=== PATIENT | female | born 1955 | race Caucasian/White ===

== ENCOUNTER 2023-01-19 10:47 | Observation (INO) ==
[2023-01-19] MEDS ORDERED: TUSSIONEX PENNKINETIC SUSP PO PRN (11:07)
[2023-01-19 12:13] LABS: BASOPHILS # (AUTO) 0.1 X10^3/uL (0.0-0.1); BASOPHILS % (AUTO) 1.3 % (0.2-1.0); EOSINOPHILS # (AUTO) 0.7 x10^3/uL (0.0-0.2); EOSINOPHILS % (AUTO) 10.4 % (0.9-2.9); HEMATOCRIT 40.4 % (36.0-47.0); LYMPHOCYTES # (AUTO) 2.7 X10^3/uL (1.3-2.9); LYMPHOCYTES % (AUTO) 39.6 % (21.0-51.0); MEAN CORPUSCULAR HEMOGLOBIN 26.2 pg (27.0-34.0); MEAN CORPUSCULAR HGB CONC 32.2 g/dL (33.0-35.0); MEAN CORPUSCULAR VOLUME 81.4 fL (80.0-100.0); MONOCYTES # (AUTO) 0.4 x10^3/uL (0.3-0.8); MONOCYTES % (AUTO) 6.1 % (0.0-13.0); NEUTROPHILS # (AUTO) 2.9 x10^3/uL (2.2-4.8); NEUTROPHILS % (AUTO) 42.6 % (42.0-75.0); PLATELET COUNT 327 X10^3/uL (150.0-450.0); RED BLOOD COUNT 4.97 X10^6/uL (3.5-5.4); RED CELL DISTRIBUTION WIDTH 16.1 % (11.6-16.5); WHITE BLOOD COUNT 6.9 X10^3/uL (3.6-10.0)
[2023-01-19] MEDS ORDERED: NS 1/2 1,000 ML IV 1,000 ML IV ONE (12:14)
[2023-01-19] MEDS: VSL#3 PO SCH (12:21)
[2023-01-19] MEDS: FORTAZ or TAZICEF VIAL INJ 1 G in NS 100 ML IV 100 ML IV SCH ×3 (12:21→21:04)
[2023-01-19] MEDS: NS 1/2 1,000 ML IV 1,000 ML IV SCH (12:22)
[2023-01-19] MEDS: ROBITUSSIN DM PO SCH ×3 (12:22→21:04)
[2023-01-19 12:38] LABS: ALANINE AMINOTRANSFERASE 21 Units/L (12-78); ALBUMIN 3.6 g/dL (3.4-5.0); ALKALINE PHOSPHATASE 69 Units/L (46-116); ASPARTATE AMINO TRANSFERASE 15 Units/L (15-37); BLOOD UREA NITROGEN 15 mg/dL (7-18); CALCIUM 8.4 mg/dL (8.5-10.1); CARBON DIOXIDE 35.5 mmol/L (21-32); CHLORIDE 99 mmol/L (98-107); CREATININE 0.96 mg/dL (0.55-1.02); GLUCOSE 98 mg/dL (65-99); POTASSIUM 3.5 mmol/L (3.5-5.1); SODIUM 137 mmol/L (136-145); TOTAL PROTEIN 7.8 g/dL (6.4-8.2); eGFR NON BLACK RACES > 60 (>60)
[2023-01-19] MEDS: DUONEB 0.5 MG/3 MG (3 mL) NEB SCH ×4 (12:42→20:44)
[2023-01-19] MEDS: PULMICORT NEB TX 0.5 MG NEB SCH ×2 (12:42→20:44)
[2023-01-19] MEDS: LEVAQUIN PREMIX IV 500 MG 500 MG/100 ML BAG IV SCH (13:30)
--- NOTE | 2023-01-19 15:15 | RAD ---
EXAM:CHEST, 1 VIEWHISTORY:PNEUMONIA;COMPARISON:No relevant prior studies were available at the time of interpretation.TECHNIQUE:CHEST, 1 VIEWFINDINGS:Lines and tubes: NoneMediastinum:The cardiomediastinal silhouette is within normal limits for size and contour.Pulmonary vasculature:No pulmonary vascular congestionLung may: No suspicious airspace opacities.Pleura:No effusion or pneumothorax.Bones and soft tissues:No acute osseous or soft tissue abnormality.IMPRESSION:1. No acute cardiopulmonary abnormalityTHIS IS AN ELECTRONICALLY VERIFIED FINAL [id number]/19/2023 3:12 PM - Electronically signed by Nikolai Hurley MD
--- NOTE | 2023-01-19 19:10 | DR.H&P ---
H&P - History & Physical for Day of: H&P Date: 01/19/23 - Chief Complaint Chief Complaint: COUGH, SHORTNESS OF BREATH, DIZZINESS - History of Present Illness History of Present Illness: IS A 67 YEAR OLD PATIENT OF AB TOUSSAINT. SHE HAS A PAST MEDICAL HISTORY OF HYPERLIPIDEMIA, HYPERTENSION, CHRONIC BACK PAIN, CATARACTS, AND DEPRESSION. SHE PRESENTED TO THE HOSPITAL A DIRECT ADMISSION, OBSERVATION STATUS, FOR FURTHER EVALUATION AND TREATMENT OF BRONCHOPNEUMONIA, FAILED OUTPATIENT TREATMENT. PATIENT REPORTS HAVING COUGH, SHORTNESS OF BREATH, DIZZINESS, AND WEAKNESS FOR THE PAST TWO WEEKS. SHE REPORTS THAT HER SYMPTOMS HAVE PROGRESSIVELY GOTTEN WORSE. SHE BEGAN TAKING CEPHALEXIN 500MG BID Q6H ON 01/09/23. WHILE IN THE OFFICE, HER OXYGEN SATURATIONS WERE NOTED TO DROP TO 87% ON ROOM AIR WHILE AMBULATING. SHE DENIES IMPROVEMENT IN SYMPTOMS SINCE TAKING CEPHALEXIN. ON ADMISSION TO THE HOSPITAL, HER VITALS WERE: 97.7-89-20-92%-183/93. LABS WERE OBTAINED. WBC 6.9, RBC 4.97, HGB 13.0,M HCT 40.4, PLT COUNT 327, SODIUM 137, POTASSIUM 3.5, CHLORIDE 99, CARBON DIOXIDE 35.5, BUN 15, CREATININE 0.96, GLUCOSE 98, CALCIUM 8.4, TOTAL BILI 0.30, AST 15, ALT 21, ALK PHOS 69, TOTAL PROTEIN 7.8, ALBUMIN 3.6. BLOOD CULTURES WERE SET UP. COVID, INFLUENZA, AND RSV WERE NEGATIVE. A RESPIRATORY VIRAL PANEL WAS SET UP. ON ADMISSION, SHE WAS STARTED ON NORMAL SALINE AT 75 ML/HR, FORTAZ 1G IV Q8H, LEVAQUIN 500MG IV DAILY, DUONEBS QID, PULMICORT NEBS BID, TUSSIONEX 5ML Q12H PRN, ROBITUSSIN DM 10ML QID, PROBIOTICS DAILY. HER HOME MEDICATIONS OF QUETIAPINE, LISINOPRIL-HCTZ, AND AMLODIPINE WERE RESUMED. OTHERWISE, WE WILL FO LLOW UP WITH AM LABS AND CHEST XRAY AND CONTINUE TO MONITOR. TIME SPENT ON CLINICAL ASSESSMENT, REVIEWING LABS AND IMAGING, DECISION MAKING, AND DOCUMENTATION GREATER THAN 75 MINUTES. - Past Medical History Past Medical History: Depression, Dyslipidemia, Hypertension - Past Surgical History Additional Surgical History: CATARACTS REMOVED - Family History Family Medical History: [place] - Social History Does patient currently use any type of tobacco product: No Have you used tobacco products in the last 12 months: No Type of Tobacco Use: None Does any household member use tobacco: No Alcohol Use: None Drug Use: None - Review of Systems Constitutional: Weakness Eyes: No Symptoms Reported ENT: No Symptoms Reported Respiratory: Cough, Shortness of Breath, SOB with Excertion, Wheezing Cardiovascular: No Symptoms Reported Gastrointestinal: No Symptoms Reported Genitourinary: No Symptoms Reported Musculoskeletal: No Symptoms Reported Skin: No Symptoms Reported Neurological: Weakness - Physical Exam Vital Signs: Vital Signs Temperature 97.6 F Temperature 97.7 F Pulse Rate [Right Brachial] 96 Pulse Rate [Right Brachial] 89 Pulse Rate 65 Respiratory Rate 20 Respiratory Rate 20 Blood Pressure [Right Arm] 142/80 Blood Pressure [Right Arm] 183/93 Blood Pressure 150/69 O2 Sat by Pulse Oximetry 96 O2 Sat by Pulse Oximetry 95 O2 Sat by Pulse Oximetry 92 Oriented: Normal Eyes: Normal Ear: Normal Nose: Normal Throat: Normal Respiratory: Wheezes Throughout Cardiovascular: Normal : Normal Auscultation: Bowel Sounds: Normal Palpation: Normal Tenderness: Normal Skin: Normal Musculoskeletal: Normal Psychiatric: Normal Mood Description: Calm Affect: Normal Speech Pattern: Clear - Assessment/Plan (1) Bronchopneumonia Status: Acute Plan: ADMIT, NORMAL SALINE AT 75 ML/HR, FORTAZ 1G IV Q8H, LEVAQUIN 500MG IV DAILY, DUONEBS QID, PULMICORT NEBS BID, TUSSIONEX 5ML Q12H PRN, ROBITUSSIN DM 10ML QID, PROBIOTICS DAILY. RESUME HOME MEDS (2) Hypoxia Status: Acute (3) Hypertension Status: Chronic (4) Hyperlipemia Status: Chronic - Allergies Allergies/Adverse Reactions: Allergies Allergy/AdvReac Type Severity Reaction Status Date / Time No Known Drug Allergies Allergy Verified 07/09/20 13:21 - Medications Home Medications: Home Medications Medication Instructions Recorded Confirmed amlodipine 5 mg tablet 5 mg PO QDAY 01/19/23 01/19/23 cephalexin 500 mg capsule 500 mg PO Q6HR 01/19/23 01/19/23 lisinopril 20 1 tab PO QDAY 01/19/23 01/19/23 mg-hydrochlorothiazide 25 mg tablet quetiapine 50 mg tablet 50 mg PO BID 01/19/23 01/19/23
[2023-01-19] MEDS ORDERED: PEPCID TAB 20 MG ONE (21:00)
[2023-01-19] MEDS: SEROquel TAB 25 mg PO SCH (21:05)
[2023-01-19] MEDS: PEPCID TAB 20 MG PO SCH (22:01)
[2023-01-20] MEDS ORDERED: NS 1/2 1,000 ML IV 1,000 ML IV ONE ×2 (03:41→19:13)
[2023-01-20] MEDS: NS 1/2 1,000 ML IV 1,000 ML IV SCH ×3 (03:44→21:29)
[2023-01-20] MEDS: FORTAZ or TAZICEF VIAL INJ 1 G in NS 100 ML IV 100 ML IV SCH ×3 (05:02→21:29)
--- NOTE | 2023-01-20 05:30 | RAD ---
PROCEDURE: Chest X-ray 1 View .HISTORY: Dyspnea.TECHNIQUE: AP portable done at 4:41 a.m..COMPARISON: 01/19/2023.TECHNICAL QUALITY: Satisfactory .FINDINGS:Normal size heart .Mediastinum and hilar regions show no masses or lymphadenopathy .Normal central vascularity .No pulmonary consolidation, masses, pleural fluid, or pneumothorax .No acute bony abnormality .IMPRESSION:No active cardiopulmonary disease .Electronically signed by: Jeovany Garcia (Jan 20, 2023 05:28:27)
[2023-01-20 06:45] LABS: ALANINE AMINOTRANSFERASE 19 Units/L (12-78); ALBUMIN 2.9 g/dL (3.4-5.0); ALKALINE PHOSPHATASE 62 Units/L (46-116); ASPARTATE AMINO TRANSFERASE 17 Units/L (15-37); BLOOD UREA NITROGEN 15 mg/dL (7-18); CALCIUM 7.8 mg/dL (8.5-10.1); CARBON DIOXIDE 32.3 mmol/L (21-32); CHLORIDE 101 mmol/L (98-107); COR CA(FOR HYPOALB) 8.7 mg/dL (8.5-10.1); CREATININE 0.86 mg/dL (0.55-1.02); GLUCOSE 89 mg/dL (65-99); POTASSIUM 3.5 mmol/L (3.5-5.1); SODIUM 138 mmol/L (136-145); TOTAL PROTEIN 6.5 g/dL (6.4-8.2); eGFR NON BLACK RACES > 60 (>60)
[2023-01-20 06:53] LABS: BASOPHILS # (AUTO) 0.1 X10^3/uL (0.0-0.1); BASOPHILS % (AUTO) 1.1 % (0.2-1.0); EOSINOPHILS # (AUTO) 0.7 x10^3/uL (0.0-0.2); EOSINOPHILS % (AUTO) 9.8 % (0.9-2.9); HEMATOCRIT 35.2 % (36.0-47.0); HEMOGLOBIN 11.2 g/dL (12.0-16.0); LYMPHOCYTES # (AUTO) 2.8 X10^3/uL (1.3-2.9); LYMPHOCYTES % (AUTO) 38.5 % (21.0-51.0); MEAN CORPUSCULAR HGB CONC 31.7 g/dL (33.0-35.0); MEAN PLATELET VOLUME 7.8 fL (7.4-11.0); MONOCYTES # (AUTO) 0.6 x10^3/uL (0.3-0.8); MONOCYTES % (AUTO) 8.9 % (0.0-13.0); NEUTROPHILS % (AUTO) 41.7 % (42.0-75.0); PLATELET COUNT 275 X10^3/uL (150.0-450.0); RED BLOOD COUNT 4.29 X10^6/uL (3.5-5.4); RED CELL DISTRIBUTION WIDTH 15.9 % (11.6-16.5); WHITE BLOOD COUNT 7.2 X10^3/uL (3.6-10.0)
[2023-01-20] MEDS ORDERED: CONSULT PHARMACY - POTASSIUM & MAGNESIUM XX SCH (07:00)
[2023-01-20] MEDS: DUONEB 0.5 MG/3 MG (3 mL) NEB SCH ×4 (08:49→20:45)
[2023-01-20] MEDS: PULMICORT NEB TX 0.5 MG NEB SCH ×2 (08:49→20:45)
[2023-01-20] MEDS ORDERED: K-DUR TAB 20 MEQ PO SCH (09:00)
[2023-01-20] MEDS: NORVASC TAB 5 MG PO SCH (09:07)
[2023-01-20] MEDS: VSL#3 PO SCH (09:07)
[2023-01-20] MEDS: ROBITUSSIN DM PO SCH ×4 (09:07→21:30)
[2023-01-20] MEDS: PEPCID TAB 20 MG PO SCH ×2 (09:08→21:30)
[2023-01-20] MEDS: LEVAQUIN PREMIX IV 500 MG 500 MG/100 ML BAG IV SCH (09:08)
[2023-01-20] MEDS: ZESTORETIC 20/25 MG PO SCH (09:08)
[2023-01-20] MEDS: SEROquel TAB 25 mg PO SCH (21:30)
[2023-01-21 05:45] LABS: BASOPHILS % (AUTO) 0.7 % (0.2-1.0); EOSINOPHILS # (AUTO) 0.8 x10^3/uL (0.0-0.2); EOSINOPHILS % (AUTO) 12.4 % (0.9-2.9); HEMATOCRIT 33.8 % (36.0-47.0); HEMOGLOBIN 10.9 g/dL (12.0-16.0); LYMPHOCYTES # (AUTO) 2.6 X10^3/uL (1.3-2.9); LYMPHOCYTES % (AUTO) 39.5 % (21.0-51.0); MEAN CORPUSCULAR HEMOGLOBIN 26.3 pg (27.0-34.0); MEAN CORPUSCULAR HGB CONC 32.1 g/dL (33.0-35.0); MEAN PLATELET VOLUME 7.9 fL (7.4-11.0); MONOCYTES # (AUTO) 0.6 x10^3/uL (0.3-0.8); MONOCYTES % (AUTO) 8.6 % (0.0-13.0); NEUTROPHILS # (AUTO) 2.6 x10^3/uL (2.2-4.8); NEUTROPHILS % (AUTO) 38.8 % (42.0-75.0); PLATELET COUNT 265 X10^3/uL (150.0-450.0); RED BLOOD COUNT 4.13 X10^6/uL (3.5-5.4); RED CELL DISTRIBUTION WIDTH 15.7 % (11.6-16.5); WHITE BLOOD COUNT 6.6 X10^3/uL (3.6-10.0)
[2023-01-21 05:56] LABS: ALANINE AMINOTRANSFERASE 16 Units/L (12-78); ALBUMIN 2.6 g/dL (3.4-5.0); ALKALINE PHOSPHATASE 56 Units/L (46-116); ASPARTATE AMINO TRANSFERASE 11 Units/L (15-37); BLOOD UREA NITROGEN 9 mg/dL (7-18); CALCIUM 7.7 mg/dL (8.5-10.1); CARBON DIOXIDE 32.1 mmol/L (21-32); CHLORIDE 104 mmol/L (98-107); COR CA(FOR HYPOALB) 8.8 mg/dL (8.5-10.1); CREATININE 0.79 mg/dL (0.55-1.02); GLUCOSE 89 mg/dL (65-99); POTASSIUM 3.5 mmol/L (3.5-5.1); SODIUM 140 mmol/L (136-145); TOTAL PROTEIN 5.8 g/dL (6.4-8.2); eGFR NON BLACK RACES > 60 (>60)
--- NOTE | 2023-01-21 06:26 | RAD ---
EXAM:CHEST, 1 VIEWHISTORY:SOB;COMPARISON:01/20/2023. br.br.br.br chestFINDINGS:Patient is rotated. The cardiac and mediastinal contours are normal in size. Left medial base patchy opacity. No definite pleural effusion or pneumothorax. Soft tissue attenuation from the chest wall limits evaluation.IMPRESSION:Left medial base patchy opacity may represent atelectasis or infiltrate.THIS IS AN ELECTRONICALLY VERIFIED FINAL [id number]/2023 6:23 AM - Electronically signed by Daniel Armenta MD
[2023-01-21] MEDS ORDERED: CONSULT PHARMACY - POTASSIUM & MAGNESIUM XX SCH (07:00)
[2023-01-21] MEDS ORDERED: K-DUR TAB 20 MEQ PO SCH (09:00)
[2023-01-21] MEDS: DUONEB 0.5 MG/3 MG (3 mL) NEB SCH (09:05)
[2023-01-21] MEDS: PULMICORT NEB TX 0.5 MG NEB SCH (09:05)
[2023-01-21] MEDS: NORVASC TAB 5 MG PO SCH (10:00)
[2023-01-21] MEDS: ROBITUSSIN DM PO SCH ×2 (10:00→14:49)
[2023-01-21] MEDS: LEVAQUIN PREMIX IV 500 MG 500 MG/100 ML BAG IV SCH (10:00)
[2023-01-21] MEDS: ZESTORETIC 20/25 MG PO SCH (10:00)
[2023-01-21] MEDS: VSL#3 PO SCH (10:00)
[2023-01-21] MEDS: PEPCID TAB 20 MG PO SCH (10:00)
[2023-01-21 10:45] VITALS: TEMP 97.6
[2023-01-21 13:54] VITALS: BP 125/56; PULSE 71; RESP 20; O2SAT 98
[2023-01-21] MEDS: FORTAZ or TAZICEF VIAL INJ 1 G in NS 100 ML IV 100 ML IV SCH (14:49)
[2023-01-21] MEDS ORDERED: ASTELIN NASAL SPRAY ENOSTRIL SCH (21:00)
== END 2023-01-21 16:30 | disposition home or self-care (01) ==
LOC: MED/SURG
PROVIDERS: ADMIT Internal Medicine; ATTEND Internal Medicine
DX: R53.1 Weakness; J18.0 Bronchopneumonia, unspecified organism; R09.02 Hypoxemia; Z79.899 Other long term (current) drug therapy; I10 Essential (primary) hypertension; R06.02 Shortness of breath; R42 Dizziness and giddiness; Z20.822 Contact with and (suspected) exposure to COVID-19; E78.5 Hyperlipidemia, unspecified